=== PATIENT | female | born 2000 | race Caucasian/White ===

== ENCOUNTER 2021-02-02 14:05 | Emergency (ER) | payer OTHER ==
[~2021-02-02] VITALS: Ht 152 cm; Wt 100.0 kg
[2021-02-02] MEDS ORDERED: CETI10TA17 PO (14:27)
[2021-02-02] MEDS ORDERED: LEVOTHYROXINE (14:27)
[2021-02-02] MEDS ORDERED: BIRTH CONTROL (14:27)
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
[2021-02-02 14:34] VITALS: BP 143/95
== END 2021-02-02 14:34 | disposition home or self-care (01) ==
LOC: ER 14:09
DX: Z77.21 Contact with and (suspected) exposure to potentially hazardous body fluids (principal); Z87.2 Personal history of diseases of the skin and subcutaneous tissue
CPT/HCPCS: 99281